=== PATIENT | female | born 1950 | race Two or more races ===

== ENCOUNTER 2019-05-20 16:32 | Emergency (ER) | payer MEDICARE, MEDICAID ==
[~2019-05-20] VITALS: Ht 165.1 cm; Wt 72.6 kg
--- NOTE | 2019-05-20 17:03 | NUR ---
ED Nurse Note: Patient walked into ED from [facility] s/p mechanical trip and fall today at 1pm from the escalator. Patient fell on her lower back c/o lower back, tailbone area 01/19 non-radiating. Patient's daughter states that patient has history of back surgery twice. patient denies hitting her head, no LOC. ERMD at bedside
[2019-05-20 17:08] VITALS: BP 129/69
--- NOTE | 2019-05-20 17:10 | Emergency Room Report ---
History of Present Illness General Chief Complaint: Multiple Trauma/Fall Source: Patient Present Illness HPI Disclaimer: Please note that this report is being documented using [employer] technology. This can lead to erroneous entry secondary to incorrect interpretation by the dictating instrument. HPI: 69-year-old female with history of chronic low back pain and multiple surgeries for nonunion presents for evaluation after a back injury. The patient was going up an extra later when she lost her balance and fell backwards striking her mid and lower back multiple times down the escalator until she was finally helped off. She denies any head injury or loss of consciousness. Does not take blood thinners. She was able to ambulate though is complaining of significant pain in the lower and mid back. Denies any numbness, tingling, weakness in the extremities. Reports some scratches over the back but no lacerations. Denies any chest pain, shortness of breath, pain or swelling of the joints aside from the left elbow. She maintains full range of motion in the left upper extremity. PMH: Chronic back pain PSH: Lower back surgical repair unspecified Allergies: Hydrocodone, Tylenol Social Hx: Denies drug or alcohol use Allergies: Coded Allergies: ACETAMINOPHEN (Verified Allergy, Mild, itchiness, 05/20/19) HYDROCODONE (Verified Allergy, Mild, itchiness, 05/20/19) Patient History Now: No Nursing Documentation-PMH Past Medical History: No History, Except For Hx Asthma: Yes Review of Systems All Other Systems: negative except mentioned in HPI Physical Exam Vital Signs Date Time Temp Pulse Resp B/P (MAP) Pulse Ox O2 Delivery O2 Flow Rate FiO2 05/20/19 16:39 97.5 77 17 129/69 (89) 98 Room Air General: Awake and alert, no acute distress HEENT: Normocephalic, atraumatic. There are no scalp or face hematomas, lacerations or abrasions. No tenderness or soft tissue swelling over the facial bones. EOMI. PERRLA. No septal hematoma. No oral lacerations. Dentition is intact. No malocclusion Neck: Supple, trachea midline. Arrives without cervical collar Chest Wall: No tenderness, no deformity, no crepitus CV: RRR. S1 and S2 normal. No murmur appreciated Resp: Normal work of breathing. No cough, wheezing or crackles appreciated Abd: Soft, nontender, nondistended Skin: Intact. No abrasions, laceration or rash over the exposed skin MSK: Normal tone and bulk. No obvious deformity. Moving all extremities. Ambulating without difficulty. There is tenderness over the olecranon on the left elbow. Mild edema. Maintains pronation and supination, flexion and extension. Sensory exam is intact Neuro: Awake and alert. Mentating appropriately. Sensation is intact to light touch over the dermatomes of the upper and lower extremities Spine: There is no tenderness, step-off or deformity in the cervical spine. There is some midline tenderness in the thoracic and lumbosacral spine. Pelvis is stable. Moderate paraspinal tenderness. No obvious deformity. Medical Decision Making Diagnostic Impression: Primary Impression: Back contusion Additional Impression: Pulmonary nodule ER Course This is a 69-year-old female who had a fall down an escalator complaining of mid and lower back pain. Neurologic exam is within normal limits. The patient is ambulatory though appears to have also sustained a contusion at least to the left elbow. Will obtain x-ray to rule out fracture. Will also obtain CT scans of the thoracic and lumbar spine given the patient's history of surgeries. Other X-Ray Diagnostic Results Other X-Ray Diagnostic Results : X-Ray ordered: Left elbow # of Views/Limited Vs Complete: Complete Indication: Pain EP Interpretation: Yes Interpretation: no dislocation, no soft tissue swelling, no fractures Impression: No acute disease Electronically Signed by: Electronically signed by Dr. Connor Card Reevaluation Time: 18:49 Last Vital Signs Date Time Temp Pulse Resp B/P (MAP) Pulse Ox O2 Delivery O2 Flow Rate FiO2 05/20/19 16:39 97.5 77 17 129/69 (89) 98 Room Air Reevaluation Impression No obvious fracture dislocation on elbow film. CTs of the thoracic spine show a right lower lobe pulmonary nodule measuring 0.5 cm and recommend follow-up as an outpatient. There are also scattered mediastinal lymph nodes that they noted likely reactive as well as atherosclerotic disease and osteopenia but no evidence of acute traumatic injury. CT of the lumbar spine also shows no acute traumatic injury but multilevel age-related degenerative spinal changes. Patient began to complain of a headache while in the emergency department and a CT scan of the head was also ordered. There is no acute finding though there is questionable old occipital fracture which the patient endorses and states it happened many many years ago. She is now feeling well and has no complaints. She will be treated symptomatically as an outpatient. Follow-up with her PMD. Discussed reasons to return to the emergency department patient and her daughter who is present. She will be discharged home. Disposition: HOME, SELF-CARE Condition: Stable Scripts Methocarbamol* (ROBAXIN-750*) 750 Mg Tablet 750 MG PO TID, #21 TAB 0 Refills Prov: Connor Card MD 05/20/19 Lidocaine Patch* (Lidoderm Patch*) 1 Each Adh..patch 1 PATCH TOPIC DAILY, #7 PATCH 0 Refills Patch(es) may remain in place for up to 12 hours in any 24-hour period. Prov: Connor Card MD 05/20/19 Ibuprofen* (MOTRIN*) 600 Mg Tablet 600 MG ORAL Q8H PRN for For Pain, #30 TAB 0 Refills Prov: Connor Card MD 05/20/19 Connor Card MD May 20, 2019 17:10
[2019-05-20] MEDS ORDERED: Ketorolac 30mg Inj IM ONE (17:15)
[2019-05-20] MEDS ORDERED: oxyCODONE HCL/Acetaminophen 5/325mg ORAL ONE (17:15)
--- NOTE | 2019-05-20 17:18 | NUR ---
ED Nurse Note: Patient taken down to xray via w/c Addendum: 05/20/19 at 1734 by LIYA Patient taken down to CT via w/c
--- NOTE | 2019-05-20 17:30 | NUR ---
ED Nurse Note: xray at bedside
--- NOTE | 2019-05-20 17:50 | Diagnostic Imaging Report ---
Indications: Lower back pain status post fall from escalator, 10, nonradiating, history of prior back surgery Technique: Spiral acquisitions obtained through the lumbar spine. Multiplanar reconstructions were generated. No IV contrast utilized. Total dose length product 680 mGycm. CTDIvol(s) 7 to mGy. Dose reduction achieved using automated exposure control Comparison: none Findings: The bony alignment is normal. Vertebral body heights are preserved. The disc spaces are preserved. There is multilevel facet arthrosis demonstrated. No acute fractures. No dislocations. At L2-3, there is circumferential annular bulge. This does not significantly narrow the spinal canal. The neural foramina are preserved. At L3-4, circumferential annular bulge and facet hypertrophy results in mild to moderate narrowing of the spinal canal the neural foramina are preserved. At L4-5, circumferential annular bulge and facet arthrosis results in mild spinal canal narrowing. The neural foramina are preserved. At L5-S1, there is circumferential annular bulge which does not significantly narrow the spinal canal. Bilateral facet arthrosis results in mild narrowing of the neural foramina. The included extraspinal soft tissues are unremarkable. Impression: No acute bony trauma Degenerative changes, as detailed on a level by level basis above The CT scanner at [facility] is accredited by the [employer] and the scans are performed using protocols designed to limit radiation exposure to as low as reasonably achievable to attain images of sufficient resolution adequate for diagnostic evaluation.
--- NOTE | 2019-05-20 17:59 | Diagnostic Imaging Report ---
Indication: Back pain, status post trip and fall, history of prior back surgery Technique: Spiral acquisitions obtained through the thoracic spine. No IV contrast utilized. Multiplanar reconstructions were generated. Total dose length product 801 mGycm. CTDIvol(s) 20 mGy. Dose reduction achieved using automated exposure control Comparison: none Findings: Bony alignment is normal. Vertebral body heights are preserved. The disc spaces are preserved. No acute fractures. No dislocations. No significant disc bulge or protrusion, spinal stenosis, or neural foraminal stenosis. The included lung bases demonstrate posterior dependent atelectatic changes. Somewhat irregular 5 mm subpleural nodule demonstrated in the posterior right lower lobe, image 5 series 8, another in the right lower lobe image 95 series 8, and one adjacent to the major fissure, image 98 series 8. There is also an intrafissural lymph node demonstrated along the right major fissure. 2 subpleural nodules are noted in the right upper lobe. There is a single small subpleural bleb on the right. The included extra spinal soft tissues are unremarkable otherwise. Impression: No acute bony trauma Multiple right lung nodules of up to 5 mm diameter. Recommend comparison with any prior exams that may be available, consider dedicated chest CT to better evaluate This agrees with the preliminary interpretation provided overnight by [facility]. The CT scanner at [facility] is accredited by the [employer] and the scans are performed using protocols designed to limit radiation exposure to as low as reasonably achievable to attain images of sufficient resolution adequate for diagnostic evaluation.
--- NOTE | 2019-05-20 18:51 | Diagnostic Imaging Report ---
Indications: Headache Technique: Spiral acquisitions obtained through the brain. Angled axial and coronal 5 x 5 mm slices were reconstructed. Total dose length product 1363 mGycm. CTDI vol(s) 62 mGy. Dose reduction achieved using automated exposure control Comparison: None. Findings: There is an age-indeterminate lucency extending partly through the right occipital bone. There is no evidence of overlying soft tissue contusion or underlying intracranial abnormality No acute intracranial hemorrhage or edema. No mass effect or midline shift. There is mild age-related enlargement of the ventricles and extra axial CSF spaces. Normal alexander-white differentiation. There is evidence of prior bilateral cataract surgery. There is incidental finding of failure fusion of the posterior elements of C1. The mastoids are clear. The visualized sinuses are clear. Impression: Negative for acute intracranial bleed or mass effect Acuity indeterminate right occipital skull fracture. Lack of adjacent soft tissue abnormality suggests old but correlation with clinical findings is recommended Mild age-related volume loss Incidental findings as noted This agrees with the preliminary interpretation provided overnight by [facility]. The CT scanner at [facility] is accredited by the [employer] and the scans are performed using protocols designed to limit radiation exposure to as low as reasonably achievable to attain images of sufficient resolution adequate for diagnostic evaluation.
[2019-05-20] MEDS ORDERED: ROBAXIN-750750 MG PO (18:57)
[2019-05-20] MEDS ORDERED: IBUPROFEN600 MG ORAL (18:57)
[2019-05-20] MEDS ORDERED: LIDODERM700 M1 TOPIC (18:57)
--- NOTE | 2019-05-20 19:05 | NUR ---
ER DISCHARGE NOTE: Patient is cleared to be discharged per ERMD, pt is aox4, on room air, with stable vital signs. pt was given dc and prescription instructions, pt was able to verbalize understanding, pt id band removed without complications. pt is able to ambulate with steady gait. pt took all belongings.
[2019-05-20 19:08] VITALS: BP 130/65
--- NOTE | 2019-05-21 08:27 | Diagnostic Imaging Report ---
Indications:Pain, status post fall, injury Technique: Three or 4 views of the left elbow Comparison: None Findings: No acute fractures. No dislocations. The joint spaces are preserved. No effusions Impression: Negative
== END 2019-05-20 19:05 | disposition home or self-care (01) ==
LOC: EMR 19:04
DX: S30.0XXA Contusion of lower back and pelvis, initial encounter (principal); R91.1 Solitary pulmonary nodule; W19.XXXA Unspecified fall, initial encounter; Z88.6 Allergy status to analgesic agent
CPT/HCPCS: 70450; 72128; 72131; 73080; 96372; 99284; J1885

== ENCOUNTER 2019-11-09 21:04 | Emergency (ER) | payer MEDICARE, MEDICAID ==
[~2019-11-09] VITALS: Ht 165.1 cm; Wt 72.6 kg
[~2019-11-09 21:04] MED LIST: IBUPROFEN600 MG ORAL; LIDODERM700 M1 TOPIC; ROBAXIN-750750 MG PO
[2019-11-09] MEDS ORDERED: Omnipaque-300 100ml vial INJ PRN (22:00)
[2019-11-09] MEDS ORDERED: Morphine Sulfate 4mg/ml Inj (IV USE ONLY) IVP ONE (22:15)
--- NOTE | 2019-11-09 22:24 | Emergency Room Report ---
History of Present Illness General Chief Complaint: Abdominal Pain Source: Patient (Graham Campbell DO) Present Illness HPI Patient with complaints of lower suprapubic abdominal pain Ongoing for the past several days patient was initially placed on Augmentin by family Later the patient had a urine dip which showed positive infectious process and was given Bactrim patient continues with discomfort and feels that there is a small lump In the mid suprapubic region Denies any vomiting or diarrhea denies any chills she does have significant burning with urination and frequency (TyronGraham pickett DO) Allergies: Coded Allergies: HYDROCODONE (Verified Allergy, Mild, itchiness, 05/20/19) ASPIRIN (Verified Allergy, Unknown, 11/09/19) COVID-19 Screening Contact w/high risk pt: No Recent Travel to affected area: No Experienced COVID-19 symptoms?: No COVID-19 Testing performed ORTHOTIC/PROSTHETIC CLINICIAN: No (TyronpiyushGraham LYNN) Patient History Past Medical History: see triage record Last Menstrual Period: na Reviewed Nursing Documentation: PMH: Agreed; PSxH: Agreed (TyronGraham ch DO) Nursing Documentation-PMH Past Medical History: No History, Except For Hx Asthma: Yes (BetoGraham kumari DO) Review of Systems All Other Systems: negative except mentioned in HPI (TyronpiyushGraham LYNN) Physical Exam Vital Signs Date Time Temp Pulse Resp B/P (MAP) Pulse Ox O2 Delivery O2 Flow Rate FiO2 11/09/19 21:21 98.2 76 17 131/66 (87) 97 Room Air Sp02 EP Interpretation: reviewed, normal General Appearance: well appearing - However mild discomfort suprapubic region Head: normocephalic, atraumatic Eyes: bilateral eye PERRL, bilateral eye EOMI ENT: hearing grossly normal, normal pharynx, TMs + canals normal, uvula midline Neck: full range of motion, supple, no meningismus, no bony tend Respiratory: lungs clear, normal breath sounds, no rhonchi, no respiratory distress, no retraction, no accessory muscle use Cardiovascular #1: normal peripheral pulses, regular rate, rhythm, no edema, no gallop, no JVD, no murmur Gastrointestinal: normal bowel sounds, non tender, soft, no mass, no organomegaly, non-distended, no guarding, no hernia, no pulsatile mass, no rebound Genitourinary: no CVA tenderness - However some discomfort over the suprapubic region patient has a hysterectomy scar and there is a small fibrous lesion, at the midpoint however the patient reports that she has never felt this firmness before Musculoskeletal: normal inspection Neurologic: motor strength/tone normal, manager motor III-XII nml as tested, oriented x3 , sensory intact, responsive Psychiatric: mood/affect normal Skin: no rash Lymphatic: normal inspection, no adenopathy (Graham Campbell DO) Medical Decision Making Diagnostic Impression: Primary Impression: Abdominal pain ER Course Multiple differentials including but not limited to UTI pyelonephritis, appendicitis entertained, patient has blood work and imaging initiated And care is handed to my oncoming physician for further evaluation and disposition (Graham Campbell DO) ER Course Patient signed out by . Patient presented with suprapubic abdominal pain and dysuria. Patient was started on Bactrim yesterday. Patient is taken a total of 3 doses of Bactrim. I was asked to follow-up on her labs and CT. Patient's vital signs have been stable. CT demonstrates no acute intra- abdominal pathology except for small hiatal hernia. Patient's UA is negative but could be partially treated UTI. I have sent for urine culture. I have also switch the patient to Macrobid 100 mg p.o. twice daily. Patient's labs demonstrate no elevated white blood cell count and electrolytes demonstrate no significant acute findings. I have discussed all of this with the patient and her family member who is at the bedside. I have given them a copy of their CT and laboratory results. Patient states that she felt better after dose of fentanyl in the emergency room. Patient will follow up with her primary care physician for further treatment and evaluation. After discussing risks and benefits of further diagnostics, treatment plans, as well as indications for and risks of admission, the patient is agreeable to being discharged home. I have explained that their evaluation and treatment in the emergency department today is an important step towards them achieving better health but that their evaluation today is not intended to replace further evaluation and treatment by a physician in their local clinic. I have explained that while the current findings suggest no immediate life threatening emergency they will require further evaluation and treatment by a physician of their choice in their area. They understand that it will be necessary for them to review the final reports of their ED visit with their clinic physician. We have reviewed indications for return to the Emergency Department. I have explained that additional time may need to pass and/or additional testing as an outpatient may be necessary before a definitive diagnosis can be made. They tell me they are willing to follow up as instructed within the timeframe I recommend. They appear to understand what we discussed. Additionally they understand that if they are unable to be seen by an outpatient physician they are welcome, and in fact should, return to the Emergency Department for a repeat evaluation. The patient is stable at time of discharge. (Magali Diaz M.D.) Rhythm Strip Diag. Results Rhythm Strip Time: 00:06 EP Interpretation: yes - Magali Diaz MD Rate: 65 Rhythm: NSR, no PVC's, no ectopy (Magali Diaz M.D.) Last Vital Signs Date Time Temp Pulse Resp B/P (MAP) Pulse Ox O2 Delivery O2 Flow Rate FiO2 11/09/19 21:30 76 17 Room Air 11/09/19 21:21 98.2 131/66 (87) 97 (Graham Campbell DO) Disposition: HOME, SELF-CARE Condition: Stable - improved Scripts Nitrofurantoin Monohyd/M-Cryst* (MACROBID 100 MG*) 100 Mg Capsule 100 MG ORAL EVERY 12 HOURS for 7 Days, #14 CAP Prov: Magali Daiz M.D. 11/10/19 Additional Instructions: The patient was provided with discharge instructions, notified to follow-up with a primary care doctor and or specialist in the next 24-48 hours, and to return to the ED if they have worsening of their symptoms. Please note that this report is being documented using [employer] technology. This can lead to erroneous entry secondary to incorrect interpretation by the dictating instrument. Graham Campbell DO November 09, 2019 22:24 Magali Diaz M.D. November 10, 2019 00:07
[2019-11-09 22:50] VITALS: BP 138/61
[2019-11-09 22:54] LABS: APPEARANCE,URINE CLEAR; BILIRUBIN, URINE NEGATIVE (NEGATIVE); COLOR,URINE PALE YELLOW; GLUCOSE, URINE (UA) NEGATIVE (NEGATIVE); KETONES,URINE NEGATIVE (NEGATIVE); LEUKOCYTE ESTERASE ,URINE NEGATIVE (NEGATIVE); NITRITE,URINE NEGATIVE (NEGATIVE); PH,URINE 7 (4.5-8.0); PROTEIN,URINE NEGATIVE (NEGATIVE); UROBILINOGEN,URINE NORMAL MG/DL (0.0-1.0)
[2019-11-09 23:03] LABS: ANION GAP 8 mmol/L (5-15); BLOOD UREA NITROGEN 16 mg/dL (7-18); CALCIUM 9.3 MG/DL (8.5-10.1); CARBON DIOXIDE 27 MMOL/L (21-32); CHLORIDE 104 MMOL/L (98-107); CREATININE 1.2 MG/DL (0.55-1.30); POTASSIUM 3.7 MMOL/L (3.5-5.1); SODIUM 139 MMOL/L (136-145)
[2019-11-09 23:07] LABS: ALANINE AMINOTRANSFERASE 22 U/L (12-78); ALBUMIN 3.9 G/DL (3.4-5.0); ALBUMIN/GLOBULIN RATIO 1.1 (1.0-2.7); ALKALINE PHOSPHATASE 57 U/L (46-116); ASPARTATE AMINO TRANSFERASE 17 U/L (15-37); BASOPHILS % (AUTO) 1.4 % (0.0-2.0); BILIRUBIN,TOTAL 0.4 MG/DL (0.2-1.0); EOSINOPHILS % (AUTO) 1.2 % (0.0-3.0); HEMATOCRIT 40.2 % (37.0-47.0); HEMOGLOBIN 13.1 G/DL (12.0-16.0); LYMPHOCYTES % (AUTO) 54.9 % (20.0-45.0); MEAN CORPUSCULAR VOLUME 96 FL (80-99); MONOCYTES % (AUTO) 8.6 % (1.0-10.0); NEUTROPHILS % (AUTO) 33.8 % (45.0-75.0); PLATELET COUNT 211 K/UL (150-450); RED BLOOD COUNT 4.21 M/UL (4.20-5.40); RED CELL DISTRIBUTION WIDTH 12.7 % (11.6-14.8); WHITE BLOOD COUNT 6.2 K/UL (4.8-10.8)
[2019-11-09] MEDS ORDERED: fentaNYL 100 mcg/2 mL IV ONE (23:30)
--- NOTE | 2019-11-09 23:49 | Diagnostic Imaging Report ---
EXAM: CT Abdomen and Pelvis With Intravenous Contrast CLINICAL HISTORY: PAIN TECHNIQUE: Axial computed tomography images of the abdomen and pelvis with intravenous contrast. CTDI is 7.3 mGy and DLP is 420.6 mGy-cm. One or more of the following dose reduction techniques were used: automated exposure control, adjustment of the mA and/or kV according to patient size, use of iterative reconstruction technique. COMPARISON: None. FINDINGS: Lung bases: Unremarkable. No mass. No consolidation. ABDOMEN: Liver: Unremarkable. No mass. Gallbladder and bile ducts: Incompletely distended gallbladder otherwise gallbladder unremarkable. No calcified stones. No ductal dilation. Pancreas: Unremarkable. No mass. No ductal dilation. Spleen: Unremarkable. No splenomegaly. Adrenals: Unremarkable. No mass. Kidneys and ureters: Unremarkable. No solid mass. No hydronephrosis. Stomach and bowel: Decompressed stomach with mild hiatal hernia. Mild nonspecific distention of the mid to distal jejunal loops otherwise small bowel unremarkable. No mucosal thickening. PELVIS: Appendix: Normal appendix. Bladder: Unremarkable. No mass. Reproductive: Nonvisualized uterus suggestive of prior hysterectomy. ABDOMEN and PELVIS: Intraperitoneal space: No free fluid. No free air. Bones/joints: Degenerative disease of the spine. No acute fracture. No dislocation. Soft tissues: Unremarkable. Vasculature: Mild calcified atherosclerotic disease of aorta with tortuosity. No abdominal aortic aneurysm. Lymph nodes: Unremarkable. No enlarged lymph nodes. IMPRESSION: 1. Mild hiatal hernia. 2. No acute process identified within the abdomen or pelvis. <MYCVCSECTION> Communications: 11/09/19 23:56 Call Nurse PAM Rios on 11/08 23:55 (-07:00)
[2019-11-10] MEDS ORDERED: NITROFURANTOIN100 M2 ORAL (00:02)
[2019-11-10 00:10] VITALS: BP 130/69
[2019-11-10 00:15] VITALS: BP 130/69
== END 2019-11-10 00:15 | disposition home or self-care (01) ==
LOC: EMR 22:23
DX: R10.30 Lower abdominal pain, unspecified (principal); Z88.6 Allergy status to analgesic agent; Z90.710 Acquired absence of both cervix and uterus
CPT/HCPCS: 36415; 74177; 80053; 81003; 83690; 85025; 96361; 96374; 96375; 99284; J2270; J2405; J3010; J7030; Q9967